=== PATIENT | female | born 1995 | race African-American/Black ===

== ENCOUNTER 2018-03-02 01:55 | Emergency (ER) | payer OTHER ==
[2018-03-02 03:23] LABS: BILIRUBIN,URINE NEGATIVE (NEGATIVE); GLUCOSE, URINE (UA) NEGATIVE (NEGATIVE); KETONES,URINE (UA) NEGATIVE (NEGATIVE); LEUKOCYTE ESTERASE, URINE NEGATIVE (NEGATIVE); NITRITE,URINE NEGATIVE (NEGATIVE); OCCULT BLOOD,URINE LARGE (NEGATIVE); PROTEIN,URINE NEGATIVE (NEGATIVE); UROBILINOGEN,URINE 0.2 (NORMAL) E.U./dL (NORMAL)
[2018-03-02 03:25] LABS: CLARITY,URINE CLEAR (CLEAR); HCG UR QUAL NEGATIVE
[2018-03-02 03:31] LABS: AMORPHOUS SEDIMENT,UR None Seen /LPF; BACTERIA,URINE Rare /HPF (None Seen); MUCUS,URINE Few Strands; SQUAMOUS EPITHELIAL CELL,UR FEW Squamous (<= Few)
[2018-03-02] MEDS ORDERED: ONDANSETRON ODT 4 MG TABLET TL STA (03:43)
[2018-03-02] MEDS ORDERED: IBUPROFEN 600 MG TABLET PO STA (03:43)
--- NOTE | 2018-03-02 03:46 | ED Physician Documentation ---
PD HPI FEMALE - Stated complaint Stated Complaint: FEMALE - Chief complaint Chief Complaint: Abd Pain - History obtained from History obtained from: Patient - History of Present Illness Timing - onset: Yesterday Timing - details: Gradual onset, Still present Associated symptoms: Abdominal pain, Urinary frequency Similar symptoms before: Diagnosis Recently seen: Not recently seen - Additional information Additional information: Patient is a 23 year old female with no significant past medical history who is presenting to the emergency department for back pain and urinary frequency. patient states that her symptoms have been going on for the last two days. Patient also states that she has some nausea. Patient is currently on her menstrual cycle. Patient has not taken anything for the pain Review of Systems Constitutional: denies: Fever, Chills Eyes: reports: Reviewed and negative Ears: reports: Reviewed and negative GI: reports: Nausea. denies: Vomiting, Constipation, Diarrhea : reports: Dysuria, Frequency Skin: denies: Rash, Lesions Musculoskeletal: reports: Back pain PD PAST MEDICAL HISTORY - Past Medical History Past Medical History: No - Past Surgical History Past Surgical History: Yes General: Cholecystectomy - Present Medications Home Medications: Ambulatory Orders Medication Instructions Recorded Confirmed Ondansetron Odt [Zofran] 4 mg TL Q6H PRN #14 tablet 03/02/18 - Allergies Allergies/Adverse Reactions: Allergies Allergy/AdvReac Type Severity Reaction Status Date / Time Sulfa (Sulfonamide Allergy Anaphylaxis Verified 03/02/18 02:24 Antibiotics) - Social History Does the pt smoke?: No Smoking Status: Never smoker Does the pt drink ETOH?: Yes Does the pt have substance abuse?: No - Immunizations Immunizations are current?: Yes - POLST Patient has POLST: No PD ED PE NORMAL - Vitals Vital signs reviewed: Yes - General General: Alert and oriented X 3, No acute distress - HEENT HEENT: Atraumatic, PERRL - Cardiac Cardiac: RRR - Respiratory Respiratory: No respiratory distress - Abdomen Abdomen: Soft - Derm Derm: Normal color, Warm and dry - Extremities Extremities: No deformity PD ED PE EXPANDED - Back Back: CVA TTP left Results - Vitals Vitals: Vital Signs - 24 hr 03/02/18 02:00 Temperature 36.6 C Heart Rate 67 Respiratory 17 Rate Blood Pressure 123/67 O2 Saturation 98 Oxygen O2 Source Room air - Labs Labs: Laboratory Tests 03/02/18 02:08 Urine Color YELLOW Urine Clarity CLEAR Urine pH 6.0 Ur Specific Timpson 1.010 Urine Protein NEGATIVE Urine Glucose (UA) NEGATIVE Urine Ketones NEGATIVE Urine Occult Blood LARGE H Urine Nitrite NEGATIVE Urine Bilirubin NEGATIVE Urine Urobilinogen 0.2 (NORMAL) Ur Leukocyte Esterase NEGATIVE Urine RBC 11-25 H Urine WBC 0-3 Ur Squamous Epith Cells FEW Squamous Amorphous Sediment None Seen Urine Bacteria Rare Urine Mucus Few Strands Ur Microscopic Review INDICATED Urine Culture Comments NOT INDICATED Urine HCG, Qual NEGATIVE PD MEDICAL DECISION MAKING - ED course Complexity details: reviewed old records, reviewed results, re-evaluated patient, considered differential, d/w patient ED course: Patient was seen and examined at bedside. urine was collected and sent. there was hematuria but not significant findings for infection. patient's pain was likely secondary to menstrual cycle but due to high soda consumption renal stone was a possibility. Patient was made aware of the findings and follow up plan. Patient was stable for discharge with outpatient follow up. - Sepsis Event Vital Signs: Vital Signs - 24 hr 03/02/18 02:00 Temperature 36.6 C Heart Rate 67 Respiratory 17 Rate Blood Pressure 123/67 O2 Saturation 98 Oxygen O2 Source Room air Departure - Departure Disposition: 01 Home, Self Care Clinical Impression: Flank pain Condition: Good Instructions: ED Flank Pain Uncertain Cause Follow-Up: primary,care provider [Other] - As Needed Prescriptions: Ondansetron Odt [Zofran] 4 mg TL Q6H PRN #14 tablet PRN Reason: Nausea / Vomiting Comments: There was no sign of infection today. Your symptoms are either being caused by your menstrual cycle or possibly a kidney stone. It is important to stop drinking soda and make sure you stay well hydrated with plenty of water, at least 100oz a day. you can take the zofran as needed for nausea and ibuprofen as needed for pain. You should follow up with your doctor if symptoms persist. You may return to the emergency department at any time for new, worsening or uncontrollable symptoms.
[2018-03-02 03:57] VITALS: BP 129/92
== END 2018-03-02 04:04 | disposition home or self-care (01) ==
LOC: ED 01:55
DX: R10.30 Lower abdominal pain, unspecified (principal); R31.9 Hematuria, unspecified
CPT/HCPCS: 81001; 81025; 99283; A9270; Q0162; 81003; 87086

== ENCOUNTER 2020-09-22 08:00 | Outpatient (CLI) | payer OTHER ==
[2020-09-22 22:47] LABS: BACTERIAL VAGINOSIS DNA POSITIVE (NEGATIVE); CANDIDA GLABRATA DNA NEGATIVE (NEGATIVE); CANDIDA GROUP DNA NEGATIVE (NEGATIVE); CANDIDA KRUSEI DNA NEGATIVE (NEGATIVE); TRICHOMONAS VAGINALIS DNA NEGATIVE (NEGATIVE)
[2020-09-22 23:46] LABS: NEISSERIA GONORRHOEAE DNA NEGATIVE (NEGATIVE); TRICHOMONAS VAGINALIS DNA NEGATIVE (NEGATIVE)
[2020-09-22 23:47] LABS: CHLAMYDIA TRACHOMATIS DNA POSITIVE (NEGATIVE)
== END 2020-09-22 23:59 | disposition home or self-care (01) ==
LOC: LAB.N 08:00
PROVIDERS: ATTEND Nurse Practitioner
DX: Z11.3 Encounter for screening for infections with a predominantly sexual mode of transmission (principal)
CPT/HCPCS: 87491; 87591; 87661; 87801

== ENCOUNTER 2020-09-24 15:25 | Outpatient (CLI) | payer SELFPAY ==
[2020-09-25 08:21] LABS: HIV AG/AB 4TH GEN NON-REACTIVE (NON-REACTIVE)
[2020-09-25 12:32] LABS: HEPATITIS C ANTIBODY NON-REACTIVE (NON-REACTIVE)
[2020-09-26 14:06] LABS: HSV 1 IGG TYPE SPECIFIC AB <0.90 index; HSV 2 IGG TYPE SPECIFIC AB <0.90 index
== END 2020-09-24 15:26 | disposition home or self-care (01) ==
LOC: LAB.N 15:25
PROVIDERS: ATTEND Nurse Practitioner
DX: Z11.3 Encounter for screening for infections with a predominantly sexual mode of transmission (principal)
CPT/HCPCS: 36415; 81599; 86592; 86695; 86696; 86803; 87389

== ENCOUNTER 2020-10-08 08:00 | Outpatient (CLI) | payer OTHER ==
[2020-10-08 23:37] LABS: BACTERIAL VAGINOSIS DNA POSITIVE (NEGATIVE); CANDIDA GLABRATA DNA NEGATIVE (NEGATIVE); CANDIDA GROUP DNA NEGATIVE (NEGATIVE); CANDIDA KRUSEI DNA NEGATIVE (NEGATIVE); TRICHOMONAS VAGINALIS DNA NEGATIVE (NEGATIVE)
[2020-10-09 00:18] LABS: CHLAMYDIA TRACHOMATIS DNA NEGATIVE (NEGATIVE); NEISSERIA GONORRHOEAE DNA NEGATIVE (NEGATIVE); TRICHOMONAS VAGINALIS DNA NEGATIVE (NEGATIVE)
== END 2020-10-08 23:59 | disposition home or self-care (01) ==
LOC: LAB.N 08:00
PROVIDERS: ATTEND Physician Assistant Medical
DX: Z11.3 Encounter for screening for infections with a predominantly sexual mode of transmission (principal)
CPT/HCPCS: 87491; 87591; 87661; 87801

== ENCOUNTER 2023-08-02 08:00 | Outpatient (CLI) | payer OTHER ==
[2023-08-02 16:27] LABS: BILIRUBIN,URINE NEGATIVE (NEGATIVE); GLUCOSE, URINE (UA) NEGATIVE (NEGATIVE); KETONES,URINE (UA) NEGATIVE (NEGATIVE); LEUKOCYTE ESTERASE, URINE TRACE (NEGATIVE); NITRITE,URINE NEGATIVE (NEGATIVE); OCCULT BLOOD,URINE NEGATIVE (NEGATIVE); PROTEIN,URINE NEGATIVE (NEGATIVE); UROBILINOGEN,URINE 0.2 (NORMAL) E.U./dL (NORMAL)
[2023-08-02 16:40] LABS: AMORPHOUS SEDIMENT,UR Few /LPF; BACTERIA,URINE Rare /HPF (None Seen); CLARITY,URINE CLEAR (CLEAR); RBC,URINE None Seen /HPF (0-5); SQUAMOUS EPITHELIAL CELL,UR RARE Squamous (<= Few); WBC,URINE 0-3 /HPF (0-5)
== END 2023-08-02 23:59 | disposition home or self-care (01) ==
LOC: LAB.WC 08:00
PROVIDERS: ATTEND Obstetrics & Gynecology
DX: Z34.80 Encounter for supervision of other normal pregnancy, unspecified trimester (principal)
CPT/HCPCS: 81001; 87086

== ENCOUNTER 2023-08-24 08:00 | Outpatient (CLI) | payer OTHER ==
[2023-08-24 22:37] LABS: CHLAMYDIA TRACHOMATIS DNA NEGATIVE (NEGATIVE); NEISSERIA GONORRHOEAE DNA NEGATIVE (NEGATIVE); TRICHOMONAS VAGINALIS DNA NEGATIVE (NEGATIVE)
== END 2023-08-24 23:59 | disposition home or self-care (01) ==
LOC: LAB.WC 08:00
PROVIDERS: ATTEND Obstetrics & Gynecology
DX: Z34.80 Encounter for supervision of other normal pregnancy, unspecified trimester (principal); Z36.89 Encounter for other specified antenatal screening
CPT/HCPCS: 36415; 85025; 86592; 86762; 86787; 86803; 86850; 86900; 86901; 87340; 87389; 87491; 87591; 87661

== ENCOUNTER 2023-08-24 15:31 | Outpatient (CLI) | payer OTHER ==
[2023-08-24 15:58] LABS: BASOPHILS % (AUTO) 0.4 %; EOSINOPHILS # (AUTO) 0.2 10^3/uL (0.0-0.7); HCT - HEMATOCRIT 34.5 % (37.0-47.0); HGB - HEMOGLOBIN 11.1 g/dL (12.0-16.0); LYMPHOCYTES # (AUTO) 1.5 10^3/uL (1.5-3.5); LYMPHOCYTES % (AUTO) 18.9 %; MEAN CORPUSCULAR HEMOGLOBIN 27.5 pg (27.0-31.0); MEAN CORPUSCULAR HGB CONC 32.2 g/dL (32.0-36.0); MEAN CORPUSCULAR VOLUME 85.6 fL (81.0-99.0); MEAN PLATELET VOLUME 10.4 fL (7.9-10.8); MONOCYTES # (AUTO) 0.5 10^3/uL (0.0-1.0); NEUTROPHILS # (AUTO) 5.6 10^3/uL (1.5-6.6); NEUTROPHILS % (AUTO) 72.6 %; PLT - PLATELET COUNT 262 10^3/uL (130-450); RED BLOOD COUNT 4.03 10^6/uL (4.20-5.40); RED CELL DISTRIBUTION WIDTH 16.7 % (12.0-15.0); WHITE BLOOD COUNT 7.7 x10^3/uL (4.8-10.8)
[2023-08-25 05:14] LABS: HBsAG SCREEN Negative (Negative); RPR Non Reactive (Non Reactive)
[2023-08-25 06:11] LABS: HCV AB Non Reactive (Non Reactive)
[2023-08-25 07:10] LABS: HIV SCREEN 4TH GENERATION Non Reactive (Non Reactive)
[2023-08-25 09:10] LABS: VARICELLA-ZOSTER AB IGG 271 index (Immune >165)
== END 2023-08-24 15:32 | disposition home or self-care (01) ==
LOC: LAB 15:31
PROVIDERS: ATTEND Obstetrics & Gynecology
DX: Z34.80 Encounter for supervision of other normal pregnancy, unspecified trimester (principal); Z36.89 Encounter for other specified antenatal screening
CPT/HCPCS: 36415; 85025; 86592; 86762; 86787; 86803; 86850; 86900; 86901; 87340; 87389

== ENCOUNTER 2023-10-20 06:55 | Outpatient (CLI) | payer OTHER ==
--- NOTE | 2023-10-20 13:24 | Ultrasound Report ---
PROCEDURE: OB Anatomy Scan INDICATIONS: SUPERVISION OF OUTSIDE/PRIOR DATING DATA: Last menstrual period (LMP): 06/12/2023. LMP-based estimated date of delivery (KESHAWN): 03/18/2024. First dating scan (date and location): 08/23/2023. Estimated date of delivery (KESHAWN) from first dating scan: 03/08/2024. The below data below was generated using the ultrasound KESHAWN of 03/08/2024 TECHNIQUE: Real-time scanning was performed of the fetus, with image documentation and biometric measurements. Endovaginal scanning: Not performed. COMPARISON: 09/02/2023 FINDINGS: General: A single living intrauterine gestation is present. Presentation: Vertex Placenta: Placental position is anterior, without previa. Amniotic fluid index: 14.9 cm, within normal limits for gestational age. heart rate: 141 beats per minute. Maternal cervical canal: 5.4 cm long; normal length is 2.5 cm or more. biometrics: Biparietal diameter: 4.7 cm, 20 weeks 2 days, 60% Head circumference: 17.1 cm, 19 weeks 5 days, 29% Abdominal circumference: 14.4 cm, 19 weeks 5 days, 35% Femur length: 3.1 cm, 19 weeks 4 days, 26% Estimated gestational age from initial scan: 20 weeks 0 days Composite gestational age from present scan: 19 weeks 6 days Estimated weight and percentile: 306 g, 27th percentile Measurement variability in biometric dating: +/- 10 days from 12-20 weeks gestation, +/- 2 weeks from 20-30 weeks gestation, +/- 3 weeks at 30 weeks gestation or later. Anatomic survey: Neuro: Ventricles are normal at less than 10 mm. Cisterna magna is normal at 3-11 mm. Cerebellum i s normal in size and morphology. Nuchal skin fold: Normal at less than 6 mm between 14 and 20 weeks gestational age. Face: Nose and lips, facial profile are normal. Spine: No evidence for spina bifida. Heart: 4-chambered heart is present, with normal ventricular outflow tracts. Diaphragm: Diaphragm is intact. Stomach: Left-sided stomach is present. Kidneys: No hydronephrosis. Normal is less than 5 mm in 2nd trimester, less than 7 mm in 3rd trimester. Cord: 3 vessel cord has marginal insertion to the placenta measuring 1.4 cm in the edge. Bladder: Normal in size. Extremities: All 4 extremities are visualized. IMPRESSION: 1.Single live intrauterine consistent with 19 weeks and 6 days. 2.Normal anatomic survey. 3.Marginal placental cord insertion, 1.4 cm from the edge. Reviewed by: Shaggy Garcia MD on 10/20/2023 1:23 PM PDT Approved by: Shaggy Garcia MD on 10/20/2023 1:23 PM PDT Station ID: [id number]
== END 2023-10-20 06:56 | disposition home or self-care (01) ==
LOC: DI 06:55
PROVIDERS: ATTEND Obstetrics & Gynecology
DX: Z34.82 Encounter for supervision of other normal pregnancy, second trimester (principal)

== ENCOUNTER 2023-10-31 09:10 | Outpatient (CLI) | payer OTHER | END 2023-10-31 09:11 | disposition home or self-care (01) | LOC: LAB 09:10 | PROVIDERS: ATTEND Obstetrics & Gynecology | DX: Z34.80 Encounter for supervision of other normal pregnancy, unspecified trimester (principal) | CPT/HCPCS: 36415; 81511 ==

== ENCOUNTER 2023-12-08 09:57 | Outpatient (CLI) | payer OTHER ==
[2023-12-08 11:10] LABS: HCT - HEMATOCRIT 29.5 % (37.0-47.0); HGB - HEMOGLOBIN 9.8 g/dL (12.0-16.0); MEAN CORPUSCULAR HEMOGLOBIN 32.6 pg (27.0-31.0); MEAN CORPUSCULAR HGB CONC 33.2 g/dL (32.0-36.0); RED BLOOD COUNT 3.01 10^6/uL (4.20-5.40); RED CELL DISTRIBUTION WIDTH 14.1 % (12.0-15.0); WHITE BLOOD COUNT 7.6 x10^3/uL (4.8-10.8)
[2023-12-09 04:12] LABS: RPR Non Reactive (Non Reactive)
== END 2023-12-08 09:58 | disposition home or self-care (01) ==
LOC: LAB 09:57
PROVIDERS: ATTEND Obstetrics & Gynecology
DX: Z34.80 Encounter for supervision of other normal pregnancy, unspecified trimester (principal); Z36.89 Encounter for other specified antenatal screening
CPT/HCPCS: 36415; 82950; 85027; 86592

== ENCOUNTER 2023-12-13 07:53 | Outpatient (CLI) | payer OTHER ==
[2023-12-13 08:29] LABS: GTT GLUCOSE,FASTING 82 mg/dL (74-109)
[2023-12-13 08:49] LABS: FERRITIN 17.9 ng/mL (11.0-306.8)
== END 2023-12-13 07:54 | disposition home or self-care (01) ==
LOC: LAB 07:53
PROVIDERS: ATTEND Obstetrics & Gynecology
DX: Z34.80 Encounter for supervision of other normal pregnancy, unspecified trimester (principal)
CPT/HCPCS: 36415; 82728; 82951; 82952; 83540; 84466

== ENCOUNTER 2024-01-05 11:43 | Outpatient (CLI) | payer OTHER ==
--- NOTE | 2024-01-05 15:27 | Ultrasound Report ---
PROCEDURE: OB Follow up INDICATIONS: ABN GLUCOSE OUTSIDE/PRIOR DATING DATA: Last menstrual period (LMP): 06/12/2023. LMP-based estimated date of delivery (KESHAWN): 03/18/2024. First dating scan (date and location): 08/23/2023. Estimated date of delivery (KESHAWN) from first dating scan: 03/08/2024. The below data below was generated using the ultrasound KESHAWN of 03/08/2024 TECHNIQUE: Real-time scanning was performed of the fetus, with image documentation and biometric measurements. Endovaginal scanning: Not performed. COMPARISON: 10/20/2023 FINDINGS: General: A single living intrauterine gestation is present. Presentation: Vertex Placenta: Placental position is anterior, without previa. Amniotic fluid index: 15.4 cm, within normal limits for gestational age. heart rate: 141 beats per minute. Maternal cervical canal: 4.8 cm long; normal length is 2.5 cm or more. biometrics: Biparietal diameter: 7.9 cm, 31 weeks 4 days, 58 percentile Head circumference: 29.7 cm, 32 weeks 6 days, 66 percentile Abdominal circumference: 26.2 cm, 30 weeks 3 days, 28 percentile Femur length: 5.9 cm, 30 weeks 4 days, 25 percentile Estimated gestational age from initial scan: 31 weeks 0 days Composite gestational age from present scan: 31 weeks 3 days Estimated weight and percentile: 1636 g, 30th percentile Measurement variability in biometric dating: +/- 10 days from 12-20 weeks gestation, +/- 2 weeks from 20-30 weeks gestation, +/- 3 weeks at 30 weeks gestation or more. Other: Marginal cord insertion. IMPRESSION: Single living intrauterine at 31 weeks 0 days, KESHAWN of 03/08/2024. Estimated weight of 1636 g, 30th percentile. Marginal cord insertion. Reviewed by: Wesley Rosado MD on 01/05/2024 2:26 PM RAMA Approved by: Wesley Rosado MD on 01/05/2024 2:26 PM RAMA Station ID: [id number]
== END 2024-01-05 11:44 | disposition home or self-care (01) ==
LOC: DI 11:43
PROVIDERS: ATTEND Nurse Practitioner
DX: O99.810 Abnormal glucose complicating pregnancy (principal); O43.193 Other malformation of placenta, third trimester; Z3A.31 31 weeks gestation of pregnancy

== ENCOUNTER 2024-02-08 13:36 | Outpatient (CLI) | payer OTHER ==
--- NOTE | 2024-02-08 17:22 | Ultrasound Report ---
PROCEDURE: OB Follow up INDICATIONS: PLACENTAL ABNORMALITY OUTSIDE/PRIOR DATING DATA: Last menstrual period (LMP): 06/12/2023. LMP-based estimated date of delivery (KESHAWN): 03/18/2024. First dating scan (date and location): 08/23/2023. Estimated date of delivery (KESHAWN) from first dating scan: 03/08/2024. The below data below was generated using the ultrasound KESHAWN of 03/08/2024 TECHNIQUE: Real-time scanning was performed of the fetus, with image documentation and biometric measurements. Endovaginal scanning: Not performed. COMPARISON: OB ultrasound 01/05/2024 FINDINGS: General: A single living intrauterine gestation is present. Presentation: Vertex Placenta: Placental position is anterior, without previa. Amniotic fluid index: 9.4 cm, within normal limits for gestational age. heart rate: 143 beats per minute. Maternal cervical canal: Not well seen biometrics: Biparietal diameter: 9.0 cm there is 6 weeks 2 days 68th percentile Head circumference: 32.9 cm 37 weeks 3 days 56 percentile Abdominal circumference: 32.1 cm 36 weeks 0 days 66 percentile Femur length: 7.0 cm a 5 weeks 5 days 42nd percentile Estimated gestational age from initial scan: 35 weeks 6 days Composite gestational age from present s can: 36 weeks 3 days Estimated weight and percentile: 2858 g 59th percentile Measurement variability in biometric dating: +/- 10 days from 12-20 weeks gestation, +/- 2 weeks from 20-30 weeks gestation, +/- 3 weeks at 30 weeks gestation or more. Other: Marginal cord insertion measuring 4.2 cm IMPRESSION: Single live intrauterine with gestational age today of 36 weeks 3 days. Cord insertion measures 4.2 cm. Previous measurements were 1.4 cm. Reviewed by: Renee Cherry MD on 02/08/2024 5:21 PM PDT Approved by: Renee Cherry MD on 02/08/2024 5:21 PM PDT Station ID: [id number]
== END 2024-02-08 13:37 | disposition home or self-care (01) ==
LOC: DI 13:36
PROVIDERS: ATTEND Obstetrics & Gynecology
DX: O43.93 Unspecified placental disorder, third trimester (principal); Z3A.36 36 weeks gestation of pregnancy

== ENCOUNTER 2024-02-09 08:00 | Outpatient (CLI) | payer OTHER | END 2024-02-09 23:59 | disposition home or self-care (01) | LOC: LAB.WC 08:00 | PROVIDERS: ATTEND Nurse Practitioner | DX: Z34.80 Encounter for supervision of other normal pregnancy, unspecified trimester (principal) | CPT/HCPCS: 87797 ==

== ENCOUNTER 2024-03-02 09:40 | Outpatient (CLI) | payer OTHER ==
[2024-03-02 09:59] VITALS: BP 120/84; O2SAT 97
[2024-03-02] MEDS ORDERED: ONDANSETRON 4 MG/2 ML VIAL IVP PRN (12:28)
[2024-03-02 12:42] LABS: BASOPHILS % (AUTO) 0.2 %; EOSINOPHILS # (AUTO) 0.1 10^3/uL (0.0-0.7); HCT - HEMATOCRIT 35.2 % (37.0-47.0); HGB - HEMOGLOBIN 11.6 g/dL (12.0-16.0); LYMPHOCYTES # (AUTO) 1.9 10^3/uL (1.5-3.5); LYMPHOCYTES % (AUTO) 20.7 %; MEAN CORPUSCULAR VOLUME 97.2 fL (81.0-99.0); MEAN PLATELET VOLUME 10.8 fL (7.9-10.8); MONOCYTES # (AUTO) 0.6 10^3/uL (0.0-1.0); MONOCYTES % (AUTO) 6.9 %; NEUTROPHILS # (AUTO) 6.3 10^3/uL (1.5-6.6); NEUTROPHILS % (AUTO) 69.9 %; PLT - PLATELET COUNT 222 10^3/uL (130-450); RED BLOOD COUNT 3.62 10^6/uL (4.20-5.40); RED CELL DISTRIBUTION WIDTH 13.1 % (12.0-15.0)
[2024-03-02] MEDS: LACTATED RINGERS 1,000 ML IV ONE (12:54)
[2024-03-02 12:57] LABS: ALBUMIN 3.6 g/dL (3.2-5.5); ALBUMIN/GLOBULIN RATIO 1.3 (1.0-2.2); BILIRUBIN,TOTAL 0.3 mg/dL (0.2-1.0); CREATININE 0.5 mg/dL (0.6-1.3); POTASSIUM 3.3 mmol/L (3.5-4.5); TOTAL PROTEIN 6.3 g/dL (6.4-8.9)
--- NOTE | 2024-03-05 20:49 | PROCEDURE REPORT ---
- HPI Diagnosis/Indication for NST: Other (nausea and vomiting) Current EDU 03/08/24 Gestation 39 Weeks and 1 Days 2 Para 1 Vital Signs Temperature 98.1 F 03/02/24 09:55 Heart Rate 109 H 03/02/24 09:55 Respiratory Rate 16 03/02/24 09:55 Blood Pressure 120/84 H 03/02/24 09:55 O2 Saturation 97 03/02/24 09:55 - NST Procedure NST Procedure Start Date 03/02/24 Start Time 10:36 Stop Time 10:56 Vibroacoustic Stimulation Used No Patient States Movement Yes Reactive for of 32 weeks gestation or more. NST tracing contains at least two heart rate accelerations that are at least 15 beats per minute above the baseline rate and lasting at least 15 seconds from onset to return to baseline within a twenty minute period. - Results and Plan Findings/Impression: Reactive for of 32 weeks gestation or more. NST tracing contains at least two heart rate accelerations that are at least 15 beats per minute above the baseline rate and lasting at least 15 seconds from onset to return to baseline within a twenty minute period. patient has had labs done and mostly normal. received a liter of fluid and felt much better. Plan: discharged home. continue routine care.
== END 2024-03-02 14:23 | disposition home or self-care (01) ==
LOC: WFO 09:40 → FBP 09:41 → WFO 14:23
PROVIDERS: ATTEND Obstetrics & Gynecology
DX: O21.2 Late vomiting of pregnancy (principal); Z3A.39 39 weeks gestation of pregnancy
CPT/HCPCS: 36415; 59025; 80053; 83735; 85025; 96360; 99215; J7120; 99213

== ENCOUNTER 2024-03-09 15:06 | Inpatient (IN) | payer OTHER ==
[2024-03-09 15:53] LABS: BASOPHILS % (AUTO) 0.2 %; EOSINOPHILS # (AUTO) 0.1 10^3/uL (0.0-0.7); EOSINOPHILS % (AUTO) 0.8 %; HGB - HEMOGLOBIN 10.9 g/dL (12.0-16.0); LYMPHOCYTES # (AUTO) 1.5 10^3/uL (1.5-3.5); LYMPHOCYTES % (AUTO) 17.7 %; MEAN CORPUSCULAR HEMOGLOBIN 32.6 pg (27.0-31.0); MEAN CORPUSCULAR HGB CONC 34.1 g/dL (32.0-36.0); MEAN CORPUSCULAR VOLUME 95.8 fL (81.0-99.0); MONOCYTES # (AUTO) 0.6 10^3/uL (0.0-1.0); MONOCYTES % (AUTO) 7.1 %; NEUTROPHILS # (AUTO) 6.1 10^3/uL (1.5-6.6); NEUTROPHILS % (AUTO) 73.5 %; PLT - PLATELET COUNT 205 10^3/uL (130-450); RED BLOOD COUNT 3.34 10^6/uL (4.20-5.40); RED CELL DISTRIBUTION WIDTH 12.8 % (12.0-15.0); WHITE BLOOD COUNT 8.3 x10^3/uL (4.8-10.8)
[2024-03-09] MEDS ORDERED: lidocaine 1% 20 ML MDV ID PRN (17:14)
[2024-03-09] MEDS ORDERED: SODIUM CHLORIDE FLUSH 0.9% 10 ML SYRINGE IVP PRN (17:14)
[2024-03-09] MEDS ORDERED: OXYTOCIN 10 UNIT/ML VIAL IM PRN (17:14)
[2024-03-09] MEDS ORDERED: miSOPROStoL 200 MCG TABLET BC PRN (17:14)
[2024-03-09] MEDS ORDERED: miSOPROStoL 100 MCG TABLET VG SCH (17:14)
[2024-03-09] MEDS ORDERED: METHYLERGONOVINE 0.2 MG/ML VIAL IM PRN (17:14)
[2024-03-09] MEDS ORDERED: CARBOPROST TROMETHAMINE 250 MCG/ML VIAL IM PRN (17:14)
[2024-03-09] MEDS ORDERED: TRANEXAMIC ACID IN NACL 1,000 MG/100 ML BAG IV PRN (17:14)
--- NOTE | 2024-03-09 17:23 | HISTORY & PHYSICAL EXAMINATION ---
Admit History - Visit Reason Visit Reason: Other - : 2 Parity: 1 Premature: 0 Ectopic: 0 : 0 Risk/History: positive: None Complications This : positive: None Smoking Status: Never smoker - Mother's Labs Mother's Blood Type: positive: A Mother's RH: positive: Positive GBS: positive: Group B Step Negative Rubella Status: positive: Immune - HPI Diagnosis/Indication for NST: Other Current EDU 03/08/24 Gestation 40 Weeks and 1 Days 2 Vital Signs Temperature 36.7 C 03/09/24 15:39 Temperature 36.7 C 03/09/24 15:39 Heart Rate Respiratory Rate Blood Pressure O2 Saturation If not protocol: Oxygen Flow, liters/minute - NST Procedure NST Procedure Start Time 10:36 Stop Time 10:56 Meds/Allgy - Home Medications Home Medications: Ambulatory Orders Medication Instructions Recorded Confirmed Ondansetron Odt [Zofran] 4 mg TL Q6H PRN #14 tablet 03/02/18 03/02/24 Pnv 119/Iron Fum/Folic Acid 1 each PO DAILY 03/02/24 03/02/24 [ 19 Tablet] Sertraline HCl 100 mg PO DAILY 03/02/24 03/02/24 - Allergies Allergies/Adverse Reactions: Allergies Allergy/AdvReac Type Severity Reaction Status Date / Time Sulfa (Sulfonamide Allergy Anaphylaxis Verified 03/02/18 02:24 Antibiotics) Review of Systems - Constitutional Constitutional: denies: Fatigue, Fever, Chills - Eyes Eyes: denies: Blurred vision, Spots in vision, Dipolpia - Cardiovascular Cariovascular: denies: Chest pain, Edema - Respiratory Respiratory: denies: Cough, Wheezing - Gastrointestinal Gastrointestinal: denies: Constipation, Diarrhea, Nausea, Vomiting - Genitourinary Genitourinary: denies: Dysuria, Frequency - Integumentary Integumentary: denies: Rash, Pruritis - Neurological Neurological: denies: Headache - Psychiatric Psychiatric: denies: Depression, Anxiety - All Other Systems All Other Systems: reports: Reviewed and negative Physical - Abdominal Exam Vital Signs: Temp Pulse Resp BP Pulse Ox O2 Flow Rate 36.7 C 03/09/24 15:39 Contraction Frequency (min/apart): none Contraction Intensity: positive: Mild Uterine Resting Tone: positive: Soft - Monitoring Heart Rate Baseline: 125 Strip Review: positive: Category I - Presentation Presentation: positive: Vertex - Vaginal Exam Membranes: positive: Membranes intact Dilation (in cm): 1 Effacement (%): thick Station: positive: -3 Cervical Position: positive: Posterior - Speculum Exam Speculum Exam Performed: positive: No - Other Notes Labor Progress Note/Additional Text: HPI: This 29 yo @ 40+1 weeks by LMP and confirmed by 11+5 week ultrasound. Here for elective induction of labor. Difficult cervical assessment, likely still 1 cm as per last clinical exam. HOSKINS SCRORE: 4. We reviewed management options at length and discussed various induction options. She is open to cervical ripening with 50mcg of BC misoprostol. She has been a patient of [facility] care for the duration of her which has remained uncomplicated with the exception of Anxiety and Depression. Stable on 100mg of sertraline. Notably, her preference form listed that she does not like to be touched and is planning an epidural. ROS: No Headache, visual changes or right upper quadrant abdominal pain. Denies significant N/V. Denies urinary urgency or dysuria. All other symptoms reviewed and were negative except per HPI. In the event of an emergency, accepts the administration of blood products. Dating: LMP: 06/12/2023 KESHAWN by LMP: 03/18/2024 Initial US Date 08/23/2023, US Age 11 weeks 5 days, KESHAWN by ultrasound: 03/08/2024 Final KESHAWN: 03/08/2024 by 11-week ultrasound: Recent BP: 131/85 Labs: 10.9/32.0%, PLT 205 Last u/s EFW: @ 36+3 2858g, 59th% Total maternal weight gain: 30# OB Hx: G1: 07/15/2016 @ 38 weeks, epidural, Baby girl Carri ([place], [place]) G2: Current Medical Hx: Anxiety/Depression Surgical Hx: Cholecystectomy (2017), ACL repair Social Hx: Monogamous with male partner. Denies current use of alcohol or tobacco, marijuana or other recreational drugs. Reports that she is safe in current relationship. Family Hx: Denies family history of congenital anomalies, Cystic Fibrosis or chromosomal abnormalities Allergies: Sulfa Medications: Sertraline 100mg COURSE Depression -Sertraline 100mg daily. Mood improved. Pre- Weight: 160 BMI: 25.58 Blood type: A+ Rh: + Antibody: Neg CBC: H/H 11.1/34.5 plt 262 RUB: Immune VZV: Immune HBsAg: Negative HepC: NR RPR/AB-EIA: NR HIV: NR PAP: Normal 2021 GC/CT: Negative HSV: denies Genetic testing: QUAD-Negative Covid: vaccinated Flu: received at [facility] FAS: Placenta: Anterior w/o previa Cord: 3VC- Marginal insertion, 1.4cm from edge resolved at 36 weeks. JOE: Normal EFW: 306g 27th%ile 50gm OGCT: 151 3HR GTT: f- 82; 1hr 168; 2hr 123 3hr 100 TDAP: 12/14 Breast Pump: 12/14 3rd trimester PLT 211 HGB 9.8 HCT 29..5 RPR- NR GBS: Negative Physical exam: Normocephalic, atraumatic Heart RRR w/o M/G/R Lungs CTAB Abdomen gravid, soft, nontender. EFW 3700 FHR baseline 130, moderate variability, + accelerations, no decelerations Uterine irritability/rare contractions. Soft resting tone. SVE: difficult exam. Did not tolerate well despite nitrous administration. Posterior/not advanced dilation, vertex, membranes intact Bilateral LE's no edema Mood is good. Assessment: 29 yo @ 40+1 weeks gestation by 11 wk U/S Early labor FHR 130 Cat I GBS NEG Plan: Admit to [facility] for pre-induction cervical ripening. Continuous monitoring Epidural PRN Maternal Request. Anticipate . Plan for Labor - Plan For Labor I expect patient to be DC'd or transferred within 96 hours.: Yes
[2024-03-09] MEDS: miSOPROStoL 100 MCG TABLET BC SCH (17:53)
[2024-03-09] MEDS: LACTATED RINGERS 1,000 ML IV SCH (21:55)
[2024-03-09] MEDS ORDERED: ROPIVACAINE 0.2% 200 MG/100 ML BAG EP ONE (22:22)
[2024-03-09] MEDS ORDERED: LIDOCAINE 2%-EPI 1:100000 20 ML MDV ONE (22:22)
[2024-03-09] MEDS ORDERED: OXYTOCIN/SODIUM CHLORIDE 500 ML IV SCH (22:22)
[2024-03-09] MEDS ORDERED: CALCIUM CARBONATE CHEW 500 MG TABLET PO SCH (23:00)
[2024-03-09] MEDS ORDERED: diphenhydrAMINE INJ 50 MG/ML VIAL IVP PRN (23:29)
[2024-03-09] MEDS ORDERED: ROPIVACAINE 0.2% 200 MG/100 ML BAG EP PRN (23:29)
[2024-03-09] MEDS ORDERED: NALBUPHINE 10 MG/ML AMP IVP PRN (23:29)
[2024-03-09] MEDS ORDERED: ePHEDrine 50 MG/ML VIAL IVP PRN (23:29)
[2024-03-09] MEDS ORDERED: NALOXONE 0.4 MG/ML VIAL IVP PRN (23:29)
[2024-03-09] MEDS ORDERED: ONDANSETRON 4 MG/2 ML VIAL IVP PRN (23:29)
--- NOTE | 2024-03-09 23:29 | ANESTHESIA ---
Pre-Anesthesia VS, & Labs - Diagnosis labor pain - Procedure labor epidural Vital Signs: Temp Pulse Resp BP Pulse Ox O2 Flow Rate 36.7 C 03/09/24 15:39 Height: 5 ft 10 in Weight (kg): 86.183 kg Body Mass Index: 27.2 BMI Classification: Overweight - NPO Other - Is Patient ?: Yes - Lab Results Current Lab Results: Laboratory Tests 03/09/24 16:15: Blood Type A POSITIVE, Antibody Screen NEGATIVE 03/09/24 15:35: WBC 8.3, RBC 3.34 L, Hgb 10.9 L, Hct 32.0 L, MCV 95.8, MCH 32.6 H, MCHC 34.1, RDW 12.8, Plt Count 205, MPV 11.0 H, Neut # (Auto) 6.1, Lymph # (Auto) 1.5, [place] # (Auto) 0.6, Eos # (Auto) 0.1, Baso # (Auto) 0.0, Absolute Nucleated RBC 0.00, Nucleated RBC % 0.0 Fish Bones: 03/09/24 15:35 Home Medications and Allergies Active Medications Calcium Carbonate/Glycine (Calcium Carbonate Chew 500 Mg Tablet) 500 mg PO BID RUFUS Carboprost Tromethamine (Carboprost Tromethamine 250 Mcg/Ml Vial) 250 mcg IM Q15M PRN PRN Reason: Step 4: Hemorrhage protocol Lactated Ringer's (Lr) 1,000 mls @ 100 mls/hr IV .Q10H RUFUS Last Admin: 03/09/24 21:55 Dose: 100 mls/hr Oxytocin/Sodium Chloride (Pitocin/Sodium Chloride) 500 mls @ 999 mls/hr IV PRN PRN; Protocol PRN Reason: POST- HEMORR PREVENTION Stop: 03/14/24 17:15 Tranexamic Acid (Tranexamic 1,000 Mg/100ml-Nacl) 1,000 mg in 100 mls @ 600 mls/hr IV .ONCE PRN PRN Reason: EBL >1200mL and within 3hr Stop: 03/14/24 17:15 Oxytocin/Sodium Chloride (Pitocin/Sodium Chloride) 500 mls @ 1 mls/hr IV TITR RUFUS; Protocol Lidocaine HCl (Lidocaine 1% 20 Ml Mdv) 20 ml ID .ONCE PRN PRN Reason: PERINEAL REPAIR Stop: 03/14/24 17:15 Methylergonovine Maleate (Methylergonovine 0.2 Mg/Ml Vial) 0.2 mg IM .ONCE PRN PRN Reason: Step 2: Hemorrhage protocol Stop: 03/14/24 17:15 Misoprostol (Misoprostol 200 Mcg Tablet) 800 mcg BC .ONCE PRN PRN Reason: Step 3: Hemorrhage protocol Stop: 03/14/24 17:15 Misoprostol (Misoprostol 100 Mcg Tablet) 50 mcg BC Q4HR RUFUS Last Admin: 03/09/24 17:53 Dose: 50 mcg Oxytocin (Oxytocin 10 Unit/Ml Vial) 10 unit IM .ONCE PRN PRN Reason: Step one: If no IV access Stop: 03/14/24 17:15 Sodium Chloride (Sodium Chloride Flush 0.9% 10 Ml Syringe) 10 ml IVP 0100,0900,1700 RUFUS Sodium Chloride (Sodium Chloride Flush 0.9% 10 Ml Syringe) 10 ml IVP PRN PRN PRN Reason: NEEDED PER PROVIDER ORDERS Pnv 119/Iron Fum/Folic Acid [ 19 Tablet] 1 each PO DAILY 03/02/24 Sertraline HCl 100 mg PO DAILY 03/02/24 Allergies/Adverse Reactions: Allergies Allergy/AdvReac Type Severity Reaction Status Date / Time Sulfa (Sulfonamide Allergy Anaphylaxis Verified 03/02/18 02:24 Antibiotics) Anes History & Medical History - Anesthetic History Anesthesia Complications: reports: No previous complications Family history of Anesthesia Complications: Denies Family history of Malignant Hyperthermia: Denies - Medical History Cardiovascular: reports: None Pulmonary: reports: None Smoking Status: Never smoker - Surgical History General: reports: Cholecystectomy - Obstetrical History : 2 Parity: 1 Events: reports: None Complications: reports: None Exam General: Alert, Oriented x3, Cooperative Dental: WNL Mouth Openin Fingerbreadth Neck Mobility: Normal Mallampati classification: II Thyromental Distance: 4-6 cm Respiratory: Lungs clear Cardiovascular: Regular rate Plan Anesthesia Type: Epidural Consent for Procedure(s) Verified and Reviewed: Yes Code Status: Attempt Resuscitation ASA classification: 2-Mild systemic disease Is this case an emergency?: No
[2024-03-10] MEDS: OXYTOCIN/SODIUM CHLORIDE 500 ML IV PRN (00:22)
[2024-03-10] MEDS ORDERED: WITCH HAZEL/GLYCERIN 1 PAD TOP PRN (00:46)
[2024-03-10] MEDS ORDERED: HYDROCORTISONE 1% CREAM 28 GM TUBE PR PRN (00:46)
[2024-03-10] MEDS ORDERED: SODIUM CHLORIDE FLUSH 0.9% 10 ML SYRINGE IVP SCH (01:00)
--- NOTE | 2024-03-10 01:05 | DELIVERY NOTE ---
Delivery Note - Labor Labor: positive: Spontaneous - Delivery Method Delivery Method: positive: Spontaneous vaginal delivery - Cervical Ripening Method Cervical Ripening Method: positive: Misoprostil - Presentation Presentation: positive: Vertex, SOFIA - left occiput anterior - Nuchal Cord Nuchal Cord: positive: None - Amniotic Fluid Description Amniotic Fluid Description: positive: Clear - Episiotomy Type Episiotomy Type: positive: None - Laceration Laceration: positive: None - [place]: positive: Placed in direct skin contact with mother, Stimulated, Warmed, [place] used [place] sex: positive: Female - Cord Cord: positive: 3 vessels - Placenta Placenta: positive: Intact, Spontaneous - Estimated Blood Loss Estimated Blood Loss (in cc): 782 (QBL) - Post Delivery Events Post Delivery Events: positive: No post delivery events - Delivery Comments (Free Text/Narrative) Delivery Comments (Free Text/Narrative): Labor: This 29yo @ 40.2wks gestation by 11.5wk U/S presented to [facility] for elective induction of labor on 03/10/2024. Cervix was likely unchanged and 1cm per most recent exam in the office however pt did not tolerate cervical exam s well. Vertex position. She received 1 dose of 50mcg BC misoprostol for pre- induction cervical ripening. FHR demonstrated Category I pattern throughout labor. Epidural placed per maternal request. SROM occurred at 2340 and was noted to be a moderate amount of pink amniotic fluid. Pt progressed to c/c/+2 at 2340 with onset of active pushing at 2355. : Normal SVB of viable female infant on 03/10/2024 @ 0019. No nuchal cord. The was placed on maternal abdomen, stimulated, dried, and placed skin to skin. 's were 8 & 8 @ 1 and 5 minutes respectively. The umbilical cord was allowed to stop pulsating at which time it was doubly clamped by CNM and cut by FOB. Cord blood was obtained. 3VC. Pitocin administered via IV for hemostasis. Fundal massage and gentle cord traction applied for active management of the third stage. Placenta delivered spontaneously and intact @ 0032 with trailing membranes and moderate bleeding secondarily that resolved with complete delivery of membranes. QBL 785mL. Fourth stage: Uterine fundus firm and there is no excessive bleeding. The perineum, vagina and cervix were inspected and found to be intact. initiated. Family bonding well. Both mother and baby were left in stable condition.
[2024-03-10] MEDS: ACETAMINOPHEN 500 MG TABLET PO SCH (01:13)
[2024-03-10] MEDS: IBUPROFEN 800 MG TABLET PO SCH (01:13)
[2024-03-10] MEDS: DOCUSATE SODIUM 100 MG CAPSULE PO SCH (09:53)
--- NOTE | 2024-03-10 10:08 | PHARMACY PROGRESS NOTE ---
- Best Possible Medication History Admit Date and Time: 03/09/24 4689 Processed by: Pharmacy Medications reviewed in ED?: No Medication History completed: Yes Patient Interview: Pt unable to participate (PT WITH [facility], USED INSURANCE RECORDS AND PHYSICIAN NOTE) Secondary Source(s): Physician records, Insurance records As the person ultimately responsible for medication therapy, providers are able to order a medication from an existing home medication list in [facility] via the "Reconcile Routine" prior to Confirmation of that medication by network support manager. Such practice is discouraged except when the physician, in their clinical judgment, deems that a medical need exists for a medication without regard to previous use.
--- NOTE | 2024-03-10 10:25 | Discharge Plan ---
Discharge Plan Problem Reviewed?: Yes Disposition: Home, Self Care Condition: Good Diet: Regular Activity Restrictions: No Restrictions Shower Restrictions: No Driving Restrictions: No Weight Bearing: Full Weight Instruction Topics: Self Care, Nutrition No Smoking: If you smoke, Please STOP! Call for help. Follow-up with: Irene Busby ARNP [Provider Admit Priv/Credential] - 1 Week
--- NOTE | 2024-03-10 10:40 | DISCHARGE SUMMARY ---
Discharge Summary Condition at Discharge: Good Discharge Disposition: 01 Home, Self Care - HOSPITAL COURSE Hospital Course: Date of Admission: 03/09/2024 Date of Discharge: 03/10/2024 Diagnosis on admission: 1. 29 yo @ 40+1 weeks gestation by 11 wk U/S 2. Early labor 3. FHR 130 Cat I 4. GBS NEG Diagnosis on Discharge 1. 29 yo s/p 03/10/2024 @ 0019 2. Intact perineum 3. Breast and bottle feeding Physical exam: Normocephalic, atraumatic Heart RRR w/o M/G/R Lungs CTAB Normal uterine involution, FF below umbilicus Small rubra bleeding perineal discomfort. Bilateral LE's no edema Mood is good. Brief History: She is a patient of [facility] who presented on 03/10/2024 for scheduled induction of labor @ 40+1 weeks. She progressed rapidly from 1cm to complete with an epidural and good pain relief after a single dose of 50mcg BC misoprostol. She spontaneously delivered a viable female apgars 8 and 8 at 1 and 5 minutes respectively. QBL 732ml. intact perineum. weight: 3704g She has been doing well in her course. She is ambulating and tolerating a regular diet. She is urinating without difficulty and her lochia is normal. Her pain is well controlled without narcotic management. She will be discharged to home today. We and encouraged IBU, tylenol and stool softeners PRN. She intends to follow up with [facility] in 1 week for telehealth. She has been given precautions to call if she has any new or worsening sx such as fevers, chills, abdominal pain, increasing bleeding, or foul smelling vaginal lochia. preeclamptic precautions reviewed as well. - ALLERGIES Allergies/Adverse Reactions: Allergies Allergy/AdvReac Type Severity Reaction Status Date / Time Sulfa (Sulfonamide Allergy Anaphylaxis Verified 03/02/18 02:24 Antibiotics) - MEDICATIONS Home Medications: Ambulatory Orders Medication Instructions Recorded Confirmed Pnv 119/Iron Fum/Folic Acid 1 each PO DAILY 03/02/24 03/10/24 [ 19 Tablet] Sertraline HCl 100 mg PO DAILY 03/02/24 03/10/24 - LABS Result Diagrams: 03/09/24 15:35
[2024-03-10 18:53] VITALS: O2SAT 98
[2024-03-10 22:53] VITALS: BP 125/78
--- NOTE | 2024-03-11 02:02 | Labor Flowsheet ---
Labor Flowsheet Datetime Report Generated by CPN: 03/11/2024 02:01 Datetime: 03/10/2024 19:58 VITAL SIGNS NBP Sys/Genevieve/Mean (mmHg): 125 : 78 : 89 Pulse: 85 Datetime: 03/10/2024 08:10 SpO2 (%): 97 Datetime: 03/10/2024 02:00 Stage of : Recovery PAIN Pain Scale: 0 Pain Presence: None/Denies Pain Type: N/A Pain Relief Measures: Pain Medication Given; Comfort Measures Datetime: 03/10/2024 01:31 Communication Comments: B/P elevated pt moving arm at this time. BP rechecked Datetime: 03/10/2024 00:32 Temperature (C): 36.5 Temperature Route: Oral Datetime: 03/10/2024 00:30 Membranes Ruptured Date/Time: 03/10/2024 23:40 Datetime: 03/10/2024 00:20 LaborFlag: Labor Datetime: 03/09/2024 23:56 Patient Care Comments: Rt lateral Datetime: 03/09/2024 23:55 COMMUNICATION Communication: Call/Page Placed to Provider Notification Reason: Status Update Datetime: 03/09/2024 23:40 Membrane Status: Ruptured Membranes Rupture Method: Spontaneous Amniotic Fluid Color: Bloody Amniotic Fluid Amount: Moderate Amniotic Fluid Odor: Normal Datetime: 03/09/2024 22:51 ANESTHESIA Anesthesia Plans: Epidural Epidural Procedure: Test Dose Anesthesia Comments: pt tolerated well Datetime: 03/09/2024 22:50 Epidural Positioning: Sitting Datetime: 03/09/2024 22:34 PROCEDURE TIME OUT Procedure Verify: Correct Patient Identity; Correct Side and Site are Marked; Accurate Procedure Co nsent Form; Agreement on Procedure to be Done; Correct Patient Position Datetime: 03/09/2024 21:30 UTERINE ACTIVITY Monitor Mode: External Frequency (min): 2-5min Quality: Moderate Duration (sec): 60-90sec Pattern: Normal: <= 5 Contractions in 10 Minutes Resting Tone (Palpate): Relaxed ASSESSMENT A Monitor Mode: Telemetry FHR Baseline Rate : 135 Variability: Moderate 6-25 bpm Accelerations: 15X15 Decelerations: None Category: Category I PATIENT CARE Oxygen Method: Room Air Datetime: 03/09/2024 20:37 Patient Position/Activity: Right Lateral Datetime: 03/09/2024 20:02 Comments: broken tracing pt up to BR Datetime: 03/09/2024 19:27 Respirations: 17 Datetime: 03/09/2024 18:59 Monitor Interventions for FHR: Ultrasound Adjusted FHR Baseline Changes: No Baseline Change Datetime: 03/09/2024 18:30 Pain Coping: Breathing Through Contractions Comfort Measures: Breathing/Relaxation; Family Support Datetime: 03/09/2024 18:00 MEDICATIONS Cervical Ripening Agents: Cytotec @ 50 Datetime: 03/09/2024 16:55 Vaginal Exam Comments: unchanged from clinic Datetime: 03/09/2024 15:32 Pain Assessment Comments: nitrous used for iv start Datetime: 03/02/2024 11:59 MATERNAL ASSESSMENT Nausea/Vomiting: Present Datetime: 03/02/2024 11:52 Pain Location: Abdomen Datetime: 03/02/2024 11:40 Contraction Comments: ctx Datetime: 03/02/2024 11:21 I/O Interventions: Up to BR Datetime: 03/02/2024 10:38 VAGINAL EXAM Exam by: Mary Stout RN Cervix, Consistency: Soft Cervix, Position: Posterior Datetime: 03/02/2024 10:14 Pain Goal: 7
== END 2024-03-10 23:55 | disposition home or self-care (01) | DRG 807 ==
LOC: WFO 15:06 → FBP 15:08 → WFO 17:13 → FBP 17:14
PROVIDERS: ADMIT Nurse Practitioner Obstetrics & Gynecology; ATTEND Nurse Practitioner Obstetrics & Gynecology
PROC: 3E0DXGC Introduction of Other Therapeutic Substance into Mouth and Pharynx, External Approach (ICD-10-PCS; 2024-03-09)
PROC: 10E0XZZ Delivery of Products of Conception, External Approach (ICD-10-PCS; principal; 2024-03-10)
DX: O99.344 Other mental disorders complicating childbirth (principal); Z37.0 Single live birth; Z3A.40 40 weeks gestation of pregnancy; F32.A Depression, unspecified; F41.9 Anxiety disorder, unspecified; Z79.899 Other long term (current) drug therapy
CPT/HCPCS: 59409; 85025; 86850; 86900; 86901; A9270; J7120